=== PATIENT | male | born 1960 | race Caucasian/White ===

== ENCOUNTER 2022-02-21 15:30 | Emergency (ER) | payer OTHER ==
[2022-02-21 16:23] LABS: INFLUENZA A NAA NEGATIVE (NEGATIVE)
[2022-02-21 16:27] LABS: CORONAVIRUS 2019 SARS-COV-2 POSITIVE (NEGATIVE)
[2022-02-21 16:30] LABS: BASOPHIL 0.2 % (0-2); EOSINOPHIL 0.2 % (0-5); HGB 14.8 g/dl (13.2-18.0); LYMPHOCYTE 19.3 % (15-48); MCH 31.6 pg (25.0-31.0); MCHC 34.4 g/dL (32.0-36.0); MCV 91.7 fL (78.0-100.0); MONOCYTE 13.2 % (0-12); MPV 10.3 fL (6.0-9.5); NEUTROPHIL 66.9 % (41-80); NRBC 0; PLT 144 K/uL (150-400); RBC 4.69 M/uL (4.70-6.00); RDW 13.2 % (11.5-14.0); WBC 4.7 K/uL (4.0-10.5)
[2022-02-21 16:44] LABS: BUN/CREAT RATIO (CALC) 16.1 RATIO; CREATININE 0.87 mg/dL (0.67-1.17)
[2022-02-21] MEDS ORDERED: PREDNISONE 20MG20 MG PO (17:05)
== END 2022-02-21 17:36 | disposition home or self-care (01) ==
LOC: FER 15:30
PROVIDERS: Nurse Practitioner Family
DX: U07.1 COVID-19 (principal); J44.9 Chronic obstructive pulmonary disease, unspecified; F17.210 Nicotine dependence, cigarettes, uncomplicated; Z28.310 Unvaccinated for COVID-19; Z88.0 Allergy status to penicillin
CPT/HCPCS: 36415; 71046; 80048; 85025; J1100; U0002